=== PATIENT | male | born 1960 | race Caucasian/White ===

== ENCOUNTER 2024-06-26 10:27 | Day surgery (SDC) | payer OTHER, MEDICARE ==
[2024-06-26 10:28] VITALS: BMI 33.5
[2024-06-26] MEDS: IOHEXOL 180 MG/1 ML ML IJ ONE (17:06)
[2024-06-26] MEDS: DEXAMETHASONE SOD PHOSPHATE 20 MG/5 ML VIAL IVPUSH ONE (17:07)
[2024-06-26] MEDS: LIDOCAINE HCL 1% PRESERVATIVE FREE - 30ML VIAL IJ ONE (17:07)
[2024-06-26 17:31] VITALS: BP 106/65; PULSE 72; RESP 16; TEMP 97.5
== END 2024-06-26 17:30 | disposition home or self-care (01) ==
LOC: JASU-SURG 10:27
PROVIDERS: ATTEND Pain Medicine Pain Medicine
PROC: 3E0R33Z Introduction of Anti-inflammatory into Spinal Canal, Percutaneous Approach (ICD-10-PCS; principal; 2024-06-26 14:45)
DX: M54.12 Radiculopathy, cervical region (principal)
CPT/HCPCS: 76000-TC-FY

== ENCOUNTER 2024-07-10 04:39 | Day surgery (SDC) | payer OTHER, MEDICARE ==
[2024-07-09 11:15] VITALS: BMI 32.3
[2024-07-10] MEDS ORDERED: LIDOCAINE HCL/PF 2% SDV 5ML VIAL ONE (07:21)
[2024-07-10] MEDS ORDERED: DEXAMETHASONE SOD PHOSPHATE 10 MG/1 ML VIAL ONE (07:23)
[2024-07-10 07:37] VITALS: RESP 20
[2024-07-10] MEDS: LIDOCAINE HCL 1% PRESERVATIVE FREE - 30ML VIAL IJ ONE (09:31)
[2024-07-10] MEDS: IOHEXOL 180 MG/1 ML ML IJ ONE ×2 (09:32→09:34)
[2024-07-10] MEDS: DEXAMETHASONE SOD PHOSPHATE 10 MG/1 ML VIAL IM ONE ×2 (09:36)
[2024-07-10 10:56] VITALS: BP 120/76; PULSE 70; TEMP 97
[2024-07-10] MEDS ORDERED: ACETAMINOPHEN 500 MG TABLET (FP) PO PRN (13:32)
== END 2024-07-10 09:55 | disposition home or self-care (01) ==
LOC: JASU-SURG 04:39
PROVIDERS: ATTEND Pain Medicine Pain Medicine
PROC: 00HU33Z Insertion of Infusion Device into Spinal Canal, Percutaneous Approach (ICD-10-PCS; 2024-07-10)
PROC: 3E0R33Z Introduction of Anti-inflammatory into Spinal Canal, Percutaneous Approach (ICD-10-PCS; principal; 2024-07-10 09:00)
DX: M54.12 Radiculopathy, cervical region (principal)
CPT/HCPCS: 76000-TC-FY; J1100

== ENCOUNTER 2025-04-09 05:39 | Day surgery (SDC) | payer OTHER, MEDICARE ==
[2025-04-08 10:39] VITALS: BMI 29.7
[2025-04-09] MEDS ORDERED: DEXAMETHASONE SOD PHOSPHATE 10 MG/1 ML VIAL ONE (09:01)
[2025-04-09] MEDS ORDERED: ACETAMINOPHEN 500 MG TABLET (FP) PO PRN (09:11)
[2025-04-09 15:12] VITALS: BP 128/80; PULSE 69; RESP 20; TEMP 98
== END 2025-04-09 15:35 | disposition home or self-care (01) ==
LOC: JASU-SURG 05:39
PROVIDERS: ATTEND Pain Medicine Pain Medicine
PROC: 3E0R3BZ Introduction of Anesthetic Agent into Spinal Canal, Percutaneous Approach (ICD-10-PCS; 2025-04-09)
PROC: 3E0R33Z Introduction of Anti-inflammatory into Spinal Canal, Percutaneous Approach (ICD-10-PCS; principal; 2025-04-09 14:15)
DX: M54.12 Radiculopathy, cervical region (principal)
CPT/HCPCS: 76000-TC-FY; J1100

== ENCOUNTER 2025-04-23 09:50 | Day surgery (SDC) | payer OTHER, MEDICARE ==
[2025-04-23] MEDS: LIDOCAINE HCL 1% PRESERVATIVE FREE - 30ML VIAL IJ ONE ×2 (16:11)
[2025-04-23] MEDS: IOHEXOL 180 MG/1 ML ML IJ ONE ×2 (16:15)
[2025-04-23] MEDS: DEXAMETHASONE SOD PHOSPHATE 10 MG/1 ML VIAL IM ONE ×2 (16:16)
[2025-04-23 16:56] VITALS: RESP 18; TEMP 97.6
[2025-04-23 17:03] VITALS: BP 117/64; PULSE 76
== END 2025-04-23 16:50 | disposition home or self-care (01) ==
LOC: JASU-SURG 09:50
PROVIDERS: ATTEND Pain Medicine Pain Medicine
PROC: 3E0R3BZ Introduction of Anesthetic Agent into Spinal Canal, Percutaneous Approach (ICD-10-PCS; 2025-04-23)
PROC: 3E0R33Z Introduction of Anti-inflammatory into Spinal Canal, Percutaneous Approach (ICD-10-PCS; principal; 2025-04-23 16:30)
DX: M54.12 Radiculopathy, cervical region (principal)
CPT/HCPCS: 76000-TC-FY; J1100